=== PATIENT | female | born 1965 | race Caucasian/White ===

== ENCOUNTER 2017-12-23 12:24 | Emergency (ER) | payer OTHER ==
[2017-12-23 12:39] VITALS: BP 140/79; PULSE 81; TEMP 98.2; BMI 29.2
--- NOTE | 2017-12-23 13:00 | PDOC ---
History of Present Illness - General Chief Complaint: Pain Stated Complaint: BUMP Time Seen by Provider: 12/23/17 12:41 History Source: Patient, Family (daughter) Exam Limitations: Clinical Condition - History of Present Illness Initial Comments: 12/23/17 12:55 Patient with no cervical Medical history presenting with complaint of bump to the lateral side right thigh area is painful. No redness to the area. No trauma to area no drainage from area. Patient has been shaving legs Past History - Past Medical History Allergies/Adverse Reactions: Allergies Allergy/AdvReac Type Severity Reaction Status Date / Time No Known Allergies Allergy Verified 12/23/17 12:39 Home Medications: Ambulatory Orders Aspirin [ASA -] 81 mg PO DAILY 08/13/13 Simvastatin [Zocor -] 40 mg PO HS 08/13/13 Lisinopril/Hydrochlorothiazide [Lisinopril-Hctz 10-12.5 mg Tab] 1 each PO DAILY 08/07/14 Ibuprofen 800 mg PO TID PRN #20 tablet 12/23/17 Sulfamethoxazole/Trimethoprim [Bactrim Ds -] 1 tab PO BID 5 Days #10 tablet Anemia: No Asthma: No Cancer: No Cardiac Disorders: No CVA: No COPD: No CHF: No Dementia: No Diabetes: No GI Disorders: Yes (GERD,RIGHT COLON ADENOMA) Disorders: No HTN: Yes Hypercholesterolemia: Yes Liver Disease: No Seizures: No Thyroid Disease: No - Surgical History Abdominal Surgery: No Appendectomy: No Cardiac Surgery: No Cholecystectomy: No Lung Surgery: No Neurologic Surgery: No Orthopedic Surgery: No - Immunization History Immunization Up to Date: Yes - Suicide/Smoking/Psychosocial Hx Smoking History: Never smoked Hx Alcohol Use: No Drug/Substance Use Hx: No Substance Use Type: None Hx Substance Use Treatment: No Review of Systems - Review of Systems Constitutional: No: Chills, Diaphoresis, Fever, Loss of Appetite, Malaise, Night Sweats, Weakness, Weight Stable, Unintentional Wgt. Loss, Unexplained wgt Loss, Other HEENTM: No: Eye Pain, Blurred Vision, Tearing, Recent change in vision, Double Vision, Cataracts, Ear Pain, Ocular Prothesis, Ear Discharge, Nose Pain, Nose Congestion, Tinnitus, Nose Bleeding, Hearing Loss, Throat Pain, Throat Swelling , Mouth Pain, Dental Problems, Difficulty Swallowing, Mouth Swelling, Other Respiratory: No: Cough, Orthopnea, Shortness of Breath, SOB with Exertion, SOB at Rest, Stridor, Wheezing, Productive cough, Hemoptysis, Other Cardiac (ROS): No: Chest Pain, Edema, Irregular Heart Rate, Lightheadedness, Palpitations, Syncope, Chest Tightness, Other ABD/GI: No: Abdominal Distended, Abd. Pain w/ defecation, Blood Streaked Bowels , Constipated, Diarrhea, Difficulty Swallowing, Nausea, Poor Appetite, Poor Fluid Intake, Rectal Bleeding, Vomiting, Indigestion, Abdominal cramping, Tarry Stools, Other Musculoskeletal: Yes: Muscle Pain (over bump to lateral side of thigh). No: Back Pain, Gout, Joint Pain, Joint Swelling, Muscle Weakness, Neck Pain, Joint Stiffness, Other Integumentary: Yes: See HPI All Other Systems: Reviewed and Negative *Physical Exam - Vital Signs Last Vital Signs Temp Pulse Resp BP Pulse Ox 98.2 F 81 16 140/79 99 12/23/17 12:36 12/23/17 12:36 12/23/17 12:36 12/23/17 12:36 12/23/17 12:36 - Physical Exam Comments: 12/23/17 12:57 GENERAL: Well developed, well nourished. Awake and alert. No acute distress. HEENT: Normocephalic, atraumatic. PERRLA, EOMI. No conjunctival pallor. Sclera are non- icteric. Moist mucous membranes. Oropharynx is clear. NECK: Supple. Full ROM. No JVD. Carotid pulses 2+ and symmetric, without bruits. No thyromegaly. No lymphadenopathy. CARDIOVASCULAR: Regular rate and rhythm. No murmurs, rubs, or gallops. Distal pulses are 2+ and symmetric. PULMONARY: No evidence of respiratory distress. Lungs clear to auscultation bilaterally. No wheezing, rales or rhonchi. ABDOMINAL: Soft. Non-tender. Non-distended. No rebound or guarding. No organomegaly. Normoactive bowel sounds. MUSCULOSKELETAL Normal range of motion at all joints. No bony deformities or tenderness. No CVA tenderness. EXTREMITIES: No cyanosis. No clubbing. No edema. No calf tenderness. SKIN: small 1cm induration to lateral side of right thigh over area of shaving. no erythema to area. no increased warmth to area. no open wound to area. Warm and dry. Normal capillary refill. No rashes. No jaundice. NEUROLOGICAL: Alert, awake, appropriate. Cranial nerves 2-12 intact. No deficits to light touch and temperature in face, upper extremities and lower extremities. No motor deficits in the in face, upper extremities and lower extremities. Normoreflexic in the upper and lower extremities. Normal speech. Toes are down- going bilaterally. Gait is normal without ataxia. PSYCHIATRIC: Cooperative. Good eye contact. Appropriate mood and affect. General Appearance: Yes: Nourished, Appropriately Dressed. No: Apparent Distress Medical Decision Making - Medical Decision Making 12/23/17 12:58 Patient presenting with complaint of bump to lateral side of right thigh c/w folliculitis. Patient will be treated on outpatient basis with dermatology follow-up *DC/Admit/Observation/Transfer Diagnosis at time of Disposition: Folliculitis - Discharge Dispostion Disposition: HOME Condition at time of disposition: Good Decision to Admit order: No - Prescriptions Prescriptions: Ibuprofen 800 mg PO TID PRN #20 tablet PRN Reason: Pain Sulfamethoxazole/Trimethoprim [Bactrim Ds -] 1 tab PO BID 5 Days #10 tablet - Referrals Referrals: Deny Fernández MD [Non Staff, Medical] - - Patient Instructions Printed Discharge Instructions: Folliculitis, DI for Folliculitis Additional Instructions: apply heat therapy to area 2-3times/ day for 5-10mins. take medication as prescribed. follow-up with dermatology if symptoms persists - Post Discharge Activity
== END 2017-12-23 13:07 | disposition home or self-care (01) ==
LOC: JERFT 12:24
DX: L73.8 Other specified follicular disorders (principal); I10 Essential (primary) hypertension; E78.00 Pure hypercholesterolemia, unspecified; K21.9 Gastro-esophageal reflux disease without esophagitis
CPT/HCPCS: 99281-25

== ENCOUNTER 2018-09-18 08:06 | Day surgery (SDC) | payer OTHER ==
[2018-09-18 08:19] VITALS: BMI 30.2
[2018-09-18 10:03] LABS: EPI CELLS 2.4 /HPF (0-5/HPF); URINE APPEARANCE CLEAR; URINE BILIRUBIN NEGATIVE (NEGATIVE); URINE CASTS 4 /hpf (0-8); URINE COLOR YELLOW; URINE GLUCOSE (UA) NEGATIVE (NEGATIVE); URINE KETONE NEGATIVE (NEGATIVE); URINE LEUK ESTERASE TRACE (NEGATIVE); URINE NITRITE NEGATIVE (NEGATIVE); URINE PROTEIN NEGATIVE (NEGATIVE); URINE RBC 6 /hpf (0-4); URINE UROBILINOGEN 0.2 mg/dL (0.2-1.0); URINE WBC 2 /hpf (0-5)
[2018-09-18 10:07] LABS: BASO % 1.2 % (0-2.0); EOS % 0.8 % (0-4.5); HEMATOCRIT 40.8 % (32.4-45.2); HEMOGLOBIN 13.6 GM/dL (10.7-15.3); LYMPH % 28.9 % (8-40); MCH 30.5 pg (25.7-33.7); MCHC 33.5 g/dl (32.0-36.0); MEAN CELL VOLUME 91.2 fl (80-96); MEAN PLT VOLUME 7.6 fl (7.5-11.1); MONO % 6.8 % (3.8-10.2); NEUT % 62.3 % (42.8-82.8); PLATELET COUNT 285 K/MM3 (134-434); RBC 4.47 M/mm3 (3.60-5.2); RDW 13.5 % (11.6-15.6); WHITE BLOOD COUNT 4.6 K/mm3 (4.0-10.0)
[2018-09-18 10:20] VITALS: BP 137/83; PULSE 66; TEMP 98
[2018-09-18 10:58] LABS: AMYLASE 80 U/L (25-115); CHOLESTEROL 204 mg/dL (50-200); HDL CHOLESTEROL 64 mg/dL (40-60); LIPASE 233 U/L (73-393); TRIGLYCERIDES 131 mg/dL (0-150)
[2018-09-18 11:00] LABS: ALBUMIN 4.3 g/dl (3.4-5.0); ALK PHOS 104 U/L (45-117); ANION GAP 5 MMOL/L (8-16); BILIRUBIN,TOTAL 0.5 mg/dL (0.2-1); BLOOD UREA NITROGEN 13 mg/dL (7-18); CALCIUM 9.3 mg/dL (8.5-10.1); CHLORIDE 108 mmol/L (98-107); CO2 29 mmol/L (21-32); CREATININE 0.7 mg/dL (0.55-1.3); GLUCOSE,RANDOM 123 mg/dL (74-106); POTASSIUM 4.6 mmol/L (3.5-5.1); SGOT/AST 27 U/L (15-37); SGPT/ALT 38 U/L (13-61); SODIUM 142 mmol/L (136-145); TOT PROT 7.4 g/dl (6.4-8.2)
[2018-09-19 11:17] LABS: TRANSGLUTAMINASE IGA < 2 U/mL (0-3); TRANSGLUTAMINASE IGG 3 U/mL (0-5)
--- NOTE | 2018-09-20 10:02 | PATH ---
Surgical Pathology Report Patient Name: MIGUE LAMBERT [facility]. Rec. #: [id number] /Age/Gender: 1965 (Age: 53) / F Account: [id number] Location: U-ENDOSCOPY Taken: 09/18/2018 Received: 09/18/2018 Reported: 09/20/2018 Physicians: Linda Crow M.D. Specimen(s) Received A: 2ND PORTION DUODENUM AND BULB B: ANTRUM C: ANTRUM D: RECTAL POLYP E: RIGHT COLON Clinical History Abdominal pain, rule out ulcer, adenoma screening Postoperative diagnosis: Gastric ulcers, rectal polyps and right colon polyp Final Diagnosis A. DUODENUM, SECOND PORTION AND DUODENAL BULB, BIOPSY: DUODENAL MUCOSA WITH MILD CHRONIC DUODENITIS AND ELLA'S GLAND HYPERPLASIA. B. STOMACH, MULTIPLE ANTRAL ULCERS, BIOPSY: GASTRIC ANTRAL MUCOSA WITH MILD TO MODERATE CHRONIC INFLAMMATION, INCREASED EOSINOPHILS (FOCALLY UP TO 55 EOSINOPHILS IN ONE HPF), AND FOCAL ULCERATION. IMMUNOHISTOCHEMICAL STAIN FOR H. PYLORI IS NEGATIVE. SEE COMMENT. C. STOMACH, ANTRUM, BIOPSY: GASTRIC ANTRAL MUCOSA WITH MILD CHRONIC GASTRITIS. IMMUNOHISTOCHEMICAL STAIN FOR H. PYLORI IS NEGATIVE. D. RECTAL POLYPS, BIOPSY: TUBULAR ADENOMA. E. COLON POLYP, RIGHT, BIOPSY: TUBULAR ADENOMA. Comment: Part B, There are increased eosinophils within the lamina propria (focally up to 55 eosinophils in one hpf). This finding is nonspecific. Possible etiologies include: Helicobacter infection and treatment, idiopathic eosinophilic gastritis, medication, food allergy, parasitic infection, inflammatory bowel disease, connective tissue disorders, and malignancy. Suggest clinical correlation. Prior materials are noted. Electronically Signed Patricia Kapadia M.D. Gross Description A. Received in formalin, labeled "biopsy second portion of duodenum and duodenal bulb" are 4 molina, irregular portions of soft tissue ranging from 0.2-0.5 cm. in greatest dimension. The specimens are submitted in toto in one cassette. B. Received in formalin, labeled "biopsy multiple antral ulcers" are 3 molina, irregular portions of soft tissue ranging from 0.1-0.6 cm. in greatest dimension. The specimens are submitted in toto in one cassette. C. Received in formalin, labeled "biopsy antrum" are 4 molina, irregular portions of soft tissue ranging from 0.2-0.8 cm. in greatest dimension. The specimens are submitted in toto in one cassette. D. Received in formalin, labeled "biopsy rectal polyps" are 2 molina, irregular portions of soft tissue averaging 0.3 cm. in greatest dimension. The specimens are submitted in toto in one cassette. E. Received in formalin, labeled "biopsy right colon polyp" are 2 molina, irregular portions of soft tissue measuring 0.2 and 0.3 cm. in greatest dimension. The specimens are submitted in toto in one cassette. 09/18/2018 [facility]09/18/2018
== END 2018-09-18 10:15 | disposition home or self-care (01) ==
LOC: JASU-ENDO 08:06
PROVIDERS: ATTEND Internal Medicine Gastroenterology
PROC: 0DBP8ZX Excision of Rectum, Via Natural or Artificial Opening Endoscopic, Diagnostic (ICD-10-PCS; 2018-09-18)
PROC: 0DB68ZX Excision of Stomach, Via Natural or Artificial Opening Endoscopic, Diagnostic (ICD-10-PCS; 2018-09-18)
PROC: 0DBK8ZX Excision of Ascending Colon, Via Natural or Artificial Opening Endoscopic, Diagnostic (ICD-10-PCS; principal; 2018-09-18 08:00)
DX: Z12.11 Encounter for screening for malignant neoplasm of colon (principal); Z86.010 Personal history of colon polyps; K62.1 Rectal polyp; K64.8 Other hemorrhoids; D12.2 Benign neoplasm of ascending colon; K25.9 Gastric ulcer, unspecified as acute or chronic, without hemorrhage or perforation
CPT/HCPCS: 36415; 80053; 80061; 81003; 82150; 83516; 83690; 83721; 84703; 85025; 86140; 88305-TC; 88342-TC

== ENCOUNTER 2020-01-25 04:55 | Day surgery (SDC) | payer OTHER ==
[2020-01-23 12:59] VITALS: BMI 29.0
[2020-01-25 08:47] VITALS: TEMP 97.8
[2020-01-25 09:44] VITALS: BP 126/78; PULSE 68
--- NOTE | 2020-01-28 15:41 | PATH ---
Surgical Pathology Report Patient Name: MIGUE LAMBERT [facility]. Rec. #: [id number] /Age/Gender: 1965 (Age: 54) / F Account: [id number] Location: U-ENDOSCOPY Taken: 01/25/2020 Received: 01/25/2020 Reported: 01/28/2020 Physicians: Linda Crow M.D. Specimen(s) Received A: GASTRIC ANTRUM ULCER B: GASTRIC ANTRUM C: DISTAL AND MID ESOPHAGUS Clinical History Abdominal pain rule out ulcer Postoperative diagnosis: Pyloric ulcer Final Diagnosis A. GASTRIC ANTRUM, ULCER, BIOPSY: GASTRIC ANTRAL MUCOSA WITH MILD CHRONIC ACTIVE GASTRITIS AND ASSOCIATED ULCERATION. IMMUNOHISTOCHEMICAL STAIN FOR H. PYLORI IS NEGATIVE. B. GASTRIC ANTRUM, BIOPSY: GASTRIC ANTRAL MUCOSA WITH MILD CHRONIC GASTRITIS. IMMUNOHISTOCHEMICAL STAIN FOR H. PYLORI IS NEGATIVE. C. DISTAL AND MID ESOPHAGUS, BIOPSY SQUAMOUS MUCOSA WITH MILD REFLUX TYPE ESOPHAGITIS. Positive and negative controls (internal if applicable) show appropriate results. Electronically Signed Patricia Kapadia M.D. Gross Description A. Received in formalin, labeled "gastric antrum ulcer" are 6 molina, irregular portions of soft tissue ranging from 0.2-0.5 cm. in greatest dimension. The specimens are submitted in toto in one cassette. B. Received in formalin, labeled "gastric antrum" are 3 molina, irregular portions of soft tissue ranging from 0.2-0.4 cm. in greatest dimension. The specimens are submitted in toto in one cassette. C. Received in formalin, labeled "distal and mid esophagus" are 2 molina, irregular portions of soft tissue measuring 0.4 and 0.6 cm. in greatest dimension. The specimens are submitted in toto in one cassette. DL/01/25/2020 [place]/01/25/2020
== END 2020-01-25 09:30 | disposition home or self-care (01) ==
LOC: JASU-ENDO 04:55
PROVIDERS: ATTEND Internal Medicine Gastroenterology
PROC: 0DB68ZX Excision of Stomach, Via Natural or Artificial Opening Endoscopic, Diagnostic (ICD-10-PCS; 2020-01-25)
PROC: 0DB58ZX Excision of Esophagus, Via Natural or Artificial Opening Endoscopic, Diagnostic (ICD-10-PCS; principal; 2020-01-25 08:00)
DX: K29.50 Unspecified chronic gastritis without bleeding (principal); K21.0 Gastro-esophageal reflux disease with esophagitis
CPT/HCPCS: 88305-TC; 88342-TC

== ENCOUNTER 2023-10-24 04:31 | Day surgery (SDC) | payer OTHER ==
[2023-10-20 12:41] VITALS: BMI 29.6
[2023-10-24 12:32] VITALS: TEMP 97.8
[2023-10-24 12:35] VITALS: PULSE 60
[2023-10-24 12:37] VITALS: BP 120/63; RESP 14
== END 2023-10-24 12:45 | disposition home or self-care (01) ==
LOC: JASU-ENDO 04:31
PROVIDERS: ATTEND Internal Medicine Gastroenterology
PROC: 0DBL8ZX Excision of Transverse Colon, Via Natural or Artificial Opening Endoscopic, Diagnostic (ICD-10-PCS; 2023-10-24)
PROC: 0DB98ZX Excision of Duodenum, Via Natural or Artificial Opening Endoscopic, Diagnostic (ICD-10-PCS; 2023-10-24)
PROC: 0DB78ZX Excision of Stomach, Pylorus, Via Natural or Artificial Opening Endoscopic, Diagnostic (ICD-10-PCS; 2023-10-24)
PROC: 0DB68ZX Excision of Stomach, Via Natural or Artificial Opening Endoscopic, Diagnostic (ICD-10-PCS; 2023-10-24)
PROC: 0DB48ZX Excision of Esophagogastric Junction, Via Natural or Artificial Opening Endoscopic, Diagnostic (ICD-10-PCS; 2023-10-24)
PROC: 0DBP8ZX Excision of Rectum, Via Natural or Artificial Opening Endoscopic, Diagnostic (ICD-10-PCS; principal; 2023-10-24 11:00)
DX: Z12.11 Encounter for screening for malignant neoplasm of colon (principal); D12.8 Benign neoplasm of rectum; K63.5 Polyp of colon; Z86.010 Personal history of colon polyps; K21.00 Gastro-esophageal reflux disease with esophagitis, without bleeding; K44.9 Diaphragmatic hernia without obstruction or gangrene
CPT/HCPCS: 88305-TC; 88342-TC